=== PATIENT | female | born 1995 | race African-American/Black ===

== ENCOUNTER 2016-12-18 11:43 | Emergency (ER) | payer SELFPAY ==
[~2016-12-18] VITALS: Ht 157.5 cm; Wt 61.2 kg
[2016-12-18 11:49] VITALS: BP 123/74
== END 2016-12-18 13:52 | disposition home or self-care (01) ==
LOC: ER 11:43
DX: N76.0 Acute vaginitis (principal); N39.0 Urinary tract infection, site not specified; Z88.0 Allergy status to penicillin
CPT/HCPCS: 81025